=== PATIENT | female | born 1965 | race Caucasian/White ===

== ENCOUNTER 2018-08-23 19:18 | Emergency (ER) | payer SELFPAY ==
[2018-08-23] MEDS ORDERED: Clindamycin 150 MG CAP ONE (19:45)
== END 2018-08-23 19:52 | disposition home or self-care (01) ==
LOC: MADERS 19:18
DX: K04.7 Periapical abscess without sinus (principal); I10 Essential (primary) hypertension; K02.9 Dental caries, unspecified; E66.9 Obesity, unspecified; F41.9 Anxiety disorder, unspecified; F32.9 Major depressive disorder, single episode, unspecified; Z87.891 Personal history of nicotine dependence
CPT/HCPCS: 99283

== ENCOUNTER 2022-12-12 10:25 | Emergency (ER) | payer OTHER, SELFPAY ==
[~2022-12-12 10:25] MED LIST: Iopamidol 370 76% 100 ML VIAL ONE
[2022-12-12 11:58] LABS: #Basophils 0.1 thou/uL (0.0-0.2); #Eosinphils 0.2 thou/uL (0.0-0.7); #Lymphocytes 2.2 thou/uL (1.20-3.40); #Monocytes 0.4 thou/uL (0.11-0.59); #Neutrophils 4.2 thou/uL (1.40-6.50); %Basophils 0.9 % (0.0-1.0); %Eosinophils 2.8 % (0.0-10.0); %Lymphocytes 30.7 % (21.0-51.0); %Monocytes 6.3 % (0.0-10.0); %Neutrophils 59.5 % (42.0-75.0); Hematocrit 35.3 % (36.0-47.0); Hemoglobin 12.5 g/dL (12.0-16.0); Mean Corpuscular HGB CONC 35.4 g/dL (32.0-36.0); Mean Corpuscular Hemoglobin 31.2 pg (27.0-31.0); Mean Corpuscular Volume 88.1 fl (78.0-98.0); Mean Platelet Volume 6.9 fL (7.4-10.4); Platelet Count 234 10x3/uL (130-400); RBC Distribution Width 12.7 % (11.5-14.5)
[2022-12-12 12:05] LABS: Prothrombin Time 13.4 sec (12.0-14.7)
[2022-12-12 12:20] LABS: ALT (SGPT) 17 U/L (8-55); AST (SGOT) 16 U/L (5-34); Alkaline Phosphatase 77 U/L (40-110); Anion Gap 14 mmol/L (10-20); BUN (Urea Nitrogen) 14 mg/dL (9.8-20.1); Bilirubin, Total 0.6 mg/dL (0.2-1.2); Calc. Creatinine Clearance 0 mL/min (70-130); Calcium 8.7 mg/dL (7.8-10.44); Carbon Dioxide 23 mmol/L (22-29); Chloride 109 mmol/L (98-107); Estimated GFR 75; Globulin 2.6 g/dL (2.4-3.5); Glucose 93 mg/dL (70-105); Lipase 27 U/L (8-78); Magnesium 1.8 mg/dL (1.6-2.6); Potassium 3.8 mmol/L (3.5-5.1); Protein, Total 6.6 g/dL (6.0-8.3); Sodium 142 mmol/L (136-145)
[2022-12-12] MEDS ORDERED: cefTRIAXone (ROCEPHIN) 1 GM VIAL ONE (16:13)
[2022-12-12] MEDS ORDERED: Aspirin 325 MG TAB ONE (16:13)
[2022-12-12] MEDS ORDERED: Sodium Chloride 0.9% 100 ML ONE (16:13)
[2022-12-12] MEDS ORDERED: hydrALAZINE 20 MG/ML VIAL ONE (16:13)
== END 2022-12-12 17:17 | disposition short-term general hospital (02) ==
LOC: MADERS 10:25
DX: I24.9 Acute ischemic heart disease, unspecified (principal); E03.9 Hypothyroidism, unspecified; I10 Essential (primary) hypertension; E66.9 Obesity, unspecified; Z87.891 Personal history of nicotine dependence
CPT/HCPCS: 70450; 70491; 71046; 80053; 83605; 83690; 83735; 83880; 84484; 85025; 85610; 87040; 93005; 94760; 96365; 96375; J0360; J0696; J3490; Q9967